=== PATIENT | male | born 1960 | race Caucasian/White ===

== ENCOUNTER 2017-04-25 15:24 | Inpatient (IN) | payer OTHER ==
[~2017-04-25] VITALS: Ht 187.9 cm; Wt 102.1 kg
--- NOTE | ~2017-04-25 | PR ---
[place], [place] PROGRESS NOTE [id number] UNIT #: [id number] ROOM: 412 DOCTOR: MELVA NAYLOR MD BIRTHDATE: [birth year] DOS: 04/29/2017 SUBJECTIVE: The patient hemodynamically remained stable. Cardiac enzymes are being negative. OBJECTIVE: VITAL SIGNS: His blood pressure is excellent 115/60. He is in sinus rhythm. HEENT: Unremarkable. NECK: Supple, no JVD. LUNGS: Clear. HEART: Sounds are regular. NEUROLOGIC: Appears to be stable. LABORATORY DATA: Cardiac enzymes have been negative. All other labs are still pending. REVIEW OF SYSTEMS: The patient's anxiety improved. IMPRESSION: The patient with coronary artery disease, stent placement, hypertension, hyperlipidemia, and depression. Cardiac status appears to be stable. The patient apparently had a stress test done in [place] couple of months ago and reported negative. The patient had a stent placement by ____ last year. PLAN: The patient to continue the present care and followup with his home health registered nurse as an outpatient. At this point, cardiac status is stable. MELVA NAYLOR MD CM:PNTRANS MELVA NAYLOR MD 04/29/1738 interface
--- NOTE | ~2017-04-25 | CON ---
[place], [place] REPORT OF CONSULTATION NAME: KENDALL BELTRE UNIT #: [id number] ROOM: 412 DOCTOR: RAMIN ZEELISBET (CARRI) BIRTHDATE: [birth year] DOS: 04/28/2017 HISTORY OF PRESENT ILLNESS: The patient is a 57-year-old male referred by the hospitalist for a psychological evaluation. At the present time, this patient is on the 4th floor at [facility]. This patient is single and has no children. He states that he is on SSI for his disability. His family physician is Dr. Guy in [place], [place]. MEDICAL HISTORY: Pertinent for coronary artery disease, major depression, hypertension, generalized anxiety disorder, GERD, hypercholesterolemia and diabetes mellitus type 2. MEDICATIONS: Include Xanax, Elavil, aspirin, Suboxone, vitamin D, clonidine, metformin, naproxen, omeprazole, Zocor, trazodone, metformin, Plavix, Nexium, and Neurontin. This patient states he quit drinking many years ago and also quit smoking. He states he does occasionally smoke a cigarette. He has been on Suboxone for approximately 5 years as prescribed by Dr. Trujillo. He does have a counselor in the [place], [place] area. This patient is awake, alert and oriented in all three spheres. He does admit to being mildly depressed at this time. He was concerned about his medications what he will be placed on once he is discharged from the hospital. He states he was heading from [place], [place] and as he came by the hospital, he had chest pain and came to the Emergency Department. He was subsequently sent to the medical floor and from there he was treated under the [facility] to get him detoxified from his Subutex, according to the patient. He states he does not want to take Suboxone if possible in the future, but he does want to continue his Xanax because it helped him with his anxiety. Dr. Ho did reevaluate his medications and prescribed an antihistamine for his anxiety. DIAGNOSES: 1. Major depressive disorder, recurrent - mild. 2. History of opioid dependence. RECOMMENDATIONS: In my opinion, this patient should continue to follow up with his counselor in [place], [place] and follow up with Dr. Trujillo if necessary. Thank you very much for this consult. [place], [place] REPORT OF CONSULTATION NAME: KENDALL BELTRE UNIT #: [id number] ROOM: 412 DOCTOR: LISBET FAUSTIN ED.D (CARRI) BIRTHDATE: [birth year] LISBET FAUSTIN ED.D CM:CONSTR:REPORT OF CONSULTATION 1014 04/28/17 1057 interface
--- NOTE | ~2017-04-25 | CON ---
[place], [place] REPORT OF CONSULTATION NAME: KENDALL BELTRE UNIT #: [id number] ROOM: 412 DOCTOR: MELVA NAYLOR MD BIRTHDATE: [birth year] DOS: 04/27/2017 HISTORY OF PRESENT ILLNESS: A 57-year-old gentleman, appears to be very dramatic admitted with substernal chest discomfort. The patient had a stent placement by Dr. Pro Velasquez about 4 months ago. The patient is very vague about the timing and also the compliance is a big issue, admitted with left-sided chest discomfort, shakiness for the last 2 days. The patient with no acute EKG changes suggestion of myocardial injury or infarction. Cardiac enzymes all came out normal. The patient admits significant anxiety, has lot of psychiatric issues and shortness of breath. The patient says he has not eaten anything for the last 2-3 days, complains of anxiety and states he wants detox from Suboxone and warns to have new vision problems. The patient complain some visual disturbances. The patient looks like he is pain medication dependent on Suboxone. PAST MEDICAL HISTORY: Coronary artery disease, stent placement, depression, hypertension, hyperlipidemia, neuropathy, diabetes mellitus. PAST SURGICAL HISTORY: Cardiac catheterization, cholecystectomy, stent placement, tonsillectomy. SOCIAL HISTORY: Denies any drug abuse. Former smoker. FAMILY HISTORY: Positive for coronary artery disease. ALLERGIES: IODIDE AND PENICILLIN. HOME MEDICATIONS: Aspirin, clopidogrel, clonidine, lisinopril, gabapentin, metformin, omeprazole, simvastatin. REVIEW OF SYSTEMS: CONSTITUTIONAL: No fever, no chills. HEENT: No visual disturbances, hearing problems. CARDIOVASCULAR: As per HPI. GASTROINTESTINAL: No nausea, no vomiting. GENITOURINARY: No dysuria. NEUROLOGICAL: Stable. PHYSICAL EXAMINATION: VITAL SIGNS: Blood pressure is 110/70, sinus rhythm. HEENT: Unremarkable. NECK: Supple, no JVD. LUNGS: Clear. HEART: Sounds are regular. ABDOMEN: Soft, nontender. NEUROLOGICAL: Stable. LABORATORY DATA: Electrolytes are normal. Liver functions are normal. Hemoglobin 15, hematocrit 42.9. EKG sinus with nonspecific ST-T changes. [place], [place] REPORT OF CONSULTATION NAME: KENDALL BELTRE UNIT #: [id number] ROOM: 412 DOCTOR: MELVA NAYLOR MD BIRTHDATE: [birth year] IMPRESSION: The patient with coronary artery disease with atypical chest pain, anxiety, tachycardia, history of pain medication dependency, hyperlipidemia, hypertension, depression, and neuropathy. RECOMMENDATIONS: Continue the present medications. Make sure the patient is on the Plavix and aspirin as ordered. Continue the other medication. Behavior problems and Dr. Ho has been consulted. The patient's compliance discussed with the patient in detail. Discussed with the residents also in detail. The patient will try to obtain all the reports from [facility]. If he already has a stent placement and has a stress test a couple of months ago after the stent, there is no reason to repeat a stress. If there is no stress test are done after the stent placement, we need to consider to do a stress test and we will follow up as an outpatient. MELVA NAYLOR MD CM:CONSTR:REPORT OF CONSULTATION 1 04/27/1729 interface
--- NOTE | ~2017-04-25 | CON ---
[place], [place] REPORT OF CONSULTATION NAME: KENDALL BELTRE UNIT #: [id number] ROOM: 412 DOCTOR: SIVAKUMAR WHITTAKER MD BIRTHDATE: [birth year] DOS: 04/26/2017 CHIEF COMPLAINT: "I have been depressed and anxious for 5-6 years now." HISTORY OF PRESENT ILLNESS: This is a 57-year-old white male admitted due to significant left-sided chest pain with nausea and vomiting; however, in the course of his evaluation, he did report to the hospitalist that he has been battling depression and anxiety on and off for the last 5-6 years. He reports having never seen a psychiatrist, but does have chemical dependency counselor in [place] for polysubstance abuse. Most recently, he has been on trazodone for sleep and has been on Ativan and Xanax in the past for his anxiety. He reports multiple losses including his who was diagnosed with hereditary cirrhosis dying in his arms overnight. He was in the car with his father who dropped on the spot. He came in to his brother's house and found his brother and his young sister had overdosed on carbon monoxide poisoning and he found her as well. He reports all of these losses have affected him horrifically. He has issues with poor sleep with difficulty falling asleep, sustaining sleep and waking up early. He does have some flashback type symptoms as well. His appetite varies. His energy level fluctuates. He has been unable to work and even has a hard time attending to his ADLs because of it. MENTAL STATUS: He is alert and oriented. Mood does seem to be depressed. Affect is flat, blunted, and constricted. He endorses multiple neurovegetative symptoms as well as the anxiety. Of note is he repeatedly requested that I prescribed him Xanax because the Xanax worked better than the Ativan. There is no sisi or hypomania. There are no psychotic symptoms and memory for the most part is intact. DIAGNOSES: Major depression, recurrent; anxiety disorder, not otherwise specified and a history of polysubstance abuse. PLAN: I will discontinue his Elavil and his trazodone in lieu of Remeron 15 mg at bedtime. This will help with the depressive symptoms better. It will improve sleep and appetite and also decrease flashbacks. I would avoid the use of any benzodiazepine in an individual that has polysubstance abuse and instead utilize Vistaril 50 mg 3 times a day. If at all possible, I would see if we can get him set up with an appointment with a counselor. It would be nice to see if Nathen, psychologist, could come in and see him. If not, he would benefit from an outpatient counselor as well. Should you require further intervention, feel free to contact me at any time. [place], [place] REPORT OF CONSULTATION NAME: KENDALL BELTRE SIVAKUMAR UNIT #: [id number] ROOM: 412 DOCTOR: SIVAKUMAR WHITTAKER MD BIRTHDATE: [birth year] SIVAKUMAR WHITTAKER MD CM:CONSTR:REPORT OF CONSULTATION 0904 04/26/17 1503 interface
[~2017-04-25 15:24] MED LIST: ASPIR LOW81 MG PO; ATIVAN1 MG PO; CLONIDINE HCL0.1 MG PO; FISH OIL1000 MG PO; FLEXERIL10 MG PO; GABAPENTIN400 MG PO; GLUCOPHAGE500 MG PO; GLUCOTROL10 MG PO; JANUMET 1000 MG1 TA1 PO; LEVOFLOXACIN500 MG PO; LISINOPRIL2.5 MG PO; METFORMIN1000 MG PO; MIRALAX POWDER255 GM PO; MOTRIN800 MG PO; NEXIUM40 MG PO; NIASPAN500 MG PO; OZURDEX0.7 MG IO; PAXIL20 MG PO; PHENERGAN25 M1 PO; PLAVIX75 MG PO; TRAMADOL HCL50 MG PO; TRAZADONE HYDR100 MG PO; ULTRAM50 MG PO; VICODIN 5/500 505 MG PO; XANAX1 MG PO; ZOCOR80 MG PO
[2017-04-25 15:34] VITALS: BP 176/93
[2017-04-25 15:52] LABS: BASO # 0.1 10*3/uL (0.0-0.1); BASO % 0.6 % (0.0-1.0); EOS # 0.1 10*3/uL (0.0-0.4); EOS % 0.6 % (1.0-4.0); HEMATOCRIT 42.9 % (42.0-52.0); LYMPH # 3.9 10*3/uL (1.3-4.4); LYMPH % 23.9 % (27.0-41.0); MEAN CELL VOLUME 84.8 fl (80.0-94.0); MEAN CORPUSCULAR HGB 29.6 pg (27.0-31.0); MEAN PLATELET VOLUME 11.3 fl (9.6-12.3); MONO # 0.9 10*3/uL (0.1-1.0); MONO % 5.2 % (3.0-9.0); NEUT # 11.2 10*3/uL (2.3-7.9); NEUT % 68.5 % (47.0-73.0); PLATELET COUNT AUTOMATED 175 10*3/uL (130-400); RED BLOOD COUNT 5.06 10*6/uL (4.50-5.90); RED CELL DISTRI WIDTH 14.5 % (0-14.5); WHITE BLOOD COUNT 16.4 10*3/uL (4.8-10.8)
[2017-04-25 16:00] LABS: ACT PARTIAL THROMBO TIME 24.5 SECONDS (20.8-31.5); INTERNATIONAL NORM RATIO 1.1 (2.0-3.5)
[2017-04-25 16:13] LABS: ALBUMIN 4.1 gm/dl (3.1-4.5); ALKALINE PHOSPHATASE 77 U/L (45-117); BUN 11 mg/dl (7-24); CHLORIDE 101 mmol/L (98-107); CREATININE 0.91 mg/dL (0.70-1.30); POTASSIUM 3.7 mmol/L (3.5-5.1); SGOT/AST 21 IU/L (3-35); SGPT/ALT 38 U/L (12-78); SODIUM 134 mmol/L (136-145); TOTAL PROTEIN 8.3 gm/dL (6.4-8.2)
[2017-04-25 16:15] LABS: TROPONIN I < 0.015 ng/ml (<0.045)
[2017-04-25 18:06] VITALS: BP 150/58
[2017-04-25 18:14] VITALS: BP 122/52
[2017-04-25] MEDS ORDERED: ZOCOR80 MG PO (18:54)
[2017-04-25] MEDS ORDERED: TRAZODONE100 MG PO (18:55)
[2017-04-25] MEDS ORDERED: AMITRIPTYLINE10 MG PO (18:55)
[2017-04-25 20:00] VITALS: BP 93/64
[2017-04-25] MEDS ORDERED: OMEPRAZOLE20 M2 PO (20:57)
[2017-04-25] MEDS ORDERED: ALOGLIPTIN25 MG PO (20:58)
[2017-04-25] MEDS ORDERED: NAPROXEN375 MG PO (21:00)
[2017-04-25] MEDS ORDERED: FOLBEE PLUS TABL5 MG PO (21:01)
[2017-04-25] MEDS ORDERED: VITAMIN D-32000 UNIT PO (21:03)
[2017-04-25] MEDS ORDERED: PROMETHAZINE25 M1 PO (21:04)
[2017-04-25] MEDS ORDERED: NEURONTIN800 MG PO (21:05)
[2017-04-25] MEDS ORDERED: AMITRIPTYLINE25 MG PO (21:06)
[2017-04-25] MEDS ORDERED: SUBOXONE 8 MG-1 EACH SL (21:09)
[2017-04-26] VITALS: BP 121/67
[2017-04-26 08:00] VITALS: BP 144/64
[2017-04-26 11:51] LABS: BASO # 0.1 10*3/uL (0.0-0.1); BASO % 0.7 % (0.0-1.0); EOS # 0.1 10*3/uL (0.0-0.4); EOS % 0.6 % (1.0-4.0); HEMATOCRIT 41.2 % (42.0-52.0); HEMOGLOBIN 14.2 g/dl (14.0-18.0); LYMPH % 27.6 % (27.0-41.0); MEAN CELL VOLUME 84.9 fl (80.0-94.0); MEAN CORPUSCULAR HGB 29.3 pg (27.0-31.0); MEAN CORPUSCULAR HGB CONC 34.5 g/dl (33.0-37.0); MEAN PLATELET VOLUME 11.5 fl (9.6-12.3); MONO # 0.6 10*3/uL (0.1-1.0); MONO % 5.5 % (3.0-9.0); NEUT % 64.6 % (47.0-73.0); PLATELET COUNT AUTOMATED 179 10*3/uL (130-400); RED BLOOD COUNT 4.85 10*6/uL (4.50-5.90); RED CELL DISTRI WIDTH 14.6 % (0-14.5); WHITE BLOOD COUNT 10.8 10*3/uL (4.8-10.8)
[2017-04-26 12:00] VITALS: BP 177/66
[2017-04-26 12:17] LABS: ALBUMIN 3.8 gm/dl (3.1-4.5); ALKALINE PHOSPHATASE 69 U/L (45-117); BUN 11 mg/dl (7-24); CHLORIDE 102 mmol/L (98-107); CHOLESTEROL 113 mg/dL (<200); CREATININE 0.66 mg/dL (0.70-1.30); HDL CHOLESTEROL 41 mg/dl (40-60); LDL CHOLESTEROL 47 mg/dL (9-159); PHOSPHOROUS 2.3 mg/dL (2.5-4.9); SGOT/AST 22 IU/L (3-35); SGPT/ALT 39 U/L (12-78); SODIUM 136 mmol/L (136-145); TOTAL PROTEIN 7.9 gm/dL (6.4-8.2); TRIGLYCERIDES 124 mg/dl (<150); VLDL CHOLESTEROL 25 mg/dL (6-40)
[2017-04-26 13:01] LABS: VITAMIN D, 25-HYDROXY 23.4 ng/mL (30-100)
[2017-04-26 16:00] VITALS: BP 158/69
[2017-04-26 20:00] VITALS: BP 152/69
[2017-04-27] VITALS: BP 156/61
[2017-04-27 07:40] VITALS: BP 142/58
[2017-04-27 12:00] VITALS: BP 144/66
[2017-04-27 16:00] VITALS: BP 141/58
[2017-04-27 20:00] VITALS: BP 145/89
[2017-04-28] VITALS: BP 117/65
[2017-04-28 08:00] VITALS: BP 144/70
[2017-04-28 12:00] VITALS: BP 136/80
[2017-04-28 16:00] VITALS: BP 165/72
[2017-04-28 20:00] VITALS: BP 165/63
[2017-04-29] VITALS: BP 115/62
[2017-04-29 07:19] LABS: BASO # 0.1 10*3/uL (0.0-0.1); BASO % 0.6 % (0.0-1.0); EOS # 0.1 10*3/uL (0.0-0.4); EOS % 1.4 % (1.0-4.0); HEMATOCRIT 41.7 % (42.0-52.0); HEMOGLOBIN 14.3 g/dl (14.0-18.0); LYMPH % 39.1 % (27.0-41.0); MEAN CELL VOLUME 85.6 fl (80.0-94.0); MEAN CORPUSCULAR HGB 29.4 pg (27.0-31.0); MEAN CORPUSCULAR HGB CONC 34.3 g/dl (33.0-37.0); MEAN PLATELET VOLUME 11.5 fl (9.6-12.3); MONO # 0.8 10*3/uL (0.1-1.0); MONO % 7.3 % (3.0-9.0); NEUT # 5.2 10*3/uL (2.3-7.9); NEUT % 50.4 % (47.0-73.0); PLATELET COUNT AUTOMATED 173 10*3/uL (130-400); RED BLOOD COUNT 4.87 10*6/uL (4.50-5.90); RED CELL DISTRI WIDTH 14.4 % (0-14.5); WHITE BLOOD COUNT 10.3 10*3/uL (4.8-10.8)
[2017-04-29 07:33] LABS: CREATININE 0.73 mg/dL (0.70-1.30)
[2017-04-29 08:00] VITALS: BP 120/66
[2017-04-29] MEDS ORDERED: NATURE'S BLEND100 M2 PO (10:19)
[2017-04-29] MEDS ORDERED: MIRTAZAPINE15 M2 PO (10:19)
== END 2017-04-29 11:20 | disposition home or self-care (01) | DRG 206 ==
LOC: ED 15:24 → EDHOLD 17:38 → 4E 17:38
PROVIDERS: Emergency Medicine; Internal Medicine Hospice and Palliative Medicine
DX: M94.0 Chondrocostal junction syndrome [Tietze] (principal); E11.40 Type 2 diabetes mellitus with diabetic neuropathy, unspecified; R65.10 Systemic inflammatory response syndrome (SIRS) of non-infectious origin without acute organ dysfunction; E83.42 Hypomagnesemia; E11.65 Type 2 diabetes mellitus with hyperglycemia; E87.1 Hypo-osmolality and hyponatremia; F11.23 Opioid dependence with withdrawal; F33.0 Major depressive disorder, recurrent, mild; E78.00 Pure hypercholesterolemia, unspecified; K21.9 Gastro-esophageal reflux disease without esophagitis; I10 Essential (primary) hypertension; F41.1 Generalized anxiety disorder; G47.00 Insomnia, unspecified; I25.10 Atherosclerotic heart disease of native coronary artery without angina pectoris; E78.5 Hyperlipidemia, unspecified; I25.2 Old myocardial infarction; Z79.84 Long term (current) use of oral hypoglycemic drugs; Z79.82 Long term (current) use of aspirin; Z79.899 Other long term (current) drug therapy; Z88.6 Allergy status to analgesic agent; Z88.0 Allergy status to penicillin; Z88.8 Allergy status to other drugs, medicaments and biological substances; Z83.3 Family history of diabetes mellitus; Z83.6 Family history of other diseases of the respiratory system; Z82.49 Family history of ischemic heart disease and other diseases of the circulatory system

== ENCOUNTER 2020-04-22 11:01 | Emergency (ER) | payer OTHER ==
[~2020-04-22] VITALS: Ht 187.9 cm; Wt 105.2 kg
[~2020-04-22 11:01] MED LIST changes: +ALOGLIPTIN25 MG PO; +AMITRIPTYLINE10 MG PO; +AMITRIPTYLINE25 MG PO; +FOLBEE PLUS TABL5 MG PO; +MIRTAZAPINE15 M2 PO; +NAPROXEN375 MG PO; +NATURE'S BLEND100 M2 PO; +NEURONTIN800 MG PO; +OMEPRAZOLE20 M2 PO; +PROMETHAZINE25 M1 PO; +SUBOXONE 8 MG-1 EACH SL; +TRAZODONE100 MG PO; +VITAMIN D-32000 UNIT PO
[2020-04-22 11:32] LABS: BASO # 0.1 10*3/uL (0.0-0.1); BASO % 0.7 % (0.0-1.0); EOS # 0.1 10*3/uL (0.0-0.4); EOS % 0.7 % (1.0-4.0); HEMATOCRIT 41.2 % (42.0-52.0); LYMPH # 2.4 10*3/uL (1.3-4.4); LYMPH % 20.6 % (27.0-41.0); MEAN CORPUSCULAR HGB 28.8 pg (27.0-31.0); MEAN CORPUSCULAR HGB CONC 32.8 g/dl (33.0-37.0); MEAN PLATELET VOLUME 11.3 fl (9.6-12.3); MONO # 0.6 10*3/uL (0.1-1.0); NEUT # 8.2 10*3/uL (2.3-7.9); NEUT % 71.2 % (47.0-73.0); PLATELET COUNT AUTOMATED 196 10*3/uL (130-400); RED BLOOD COUNT 4.68 10*6/uL (4.50-5.90); RED CELL DISTRI WIDTH 15.8 % (0-14.5); WHITE BLOOD COUNT 11.5 10*3/uL (4.8-10.8)
[2020-04-22 11:43] LABS: ACT PARTIAL THROMBO TIME 25.9 SECONDS (20.0-32.1); INTERNATIONAL NORM RATIO 1.1 (2.0-3.5)
[2020-04-22 11:49] LABS: ALKALINE PHOSPHATASE 63 U/L (45-117); BUN 12 mg/dl (7-24); CHLORIDE 106 mmol/L (98-107); CREATININE 0.86 mg/dL (0.70-1.30); SGOT/AST 19 IU/L (3-35); SGPT/ALT 30 U/L (12-78); SODIUM 137 mmol/L (136-145); TOTAL PROTEIN 8.3 gm/dL (6.4-8.2)
[2020-04-22 11:50] LABS: TROPONIN I < 0.015 ng/ml (<0.045)
[2020-04-22 12:03] LABS: BILIRUBIN Negative (Negative); BLOOD Negative (Negative); CLARITY Clear (Clear); COLOR Yellow (Yellow); GLUCOSE Negative (Negative); KETONE Trace (Negative); LEUKO ESTERASE Negative (Negative); NITRITE Negative (Negative); PH 5.5 (4.5-8.0); SPECIFIC GRAVITY 1.015 (1.001-1.030); UROBILINOGEN 0.2 E.U./dl (0.0-1.0)
[2020-04-22 12:11] LABS: URINE AMPHETAMINES < 1000 (1000ng/ml); URINE BARBITURATES < 200 (200ng/ml); URINE BENZODIAZEPINES < 200 (200ng/ml); URINE CANNABINOIDS (THC) < 50 (50ng/ml); URINE COCAINE < 300 (300ng/ml); URINE METHADONE < 300 (300ng/ml); URINE OPIATES < 300 (300ng/ml)
[2020-04-22 12:13] LABS: WBC 0-2 wbc/hpf (0-5)
[2020-04-22 12:14] LABS: URINE PHENCYCLIDINE < 25 (25ng/ml)
== END 2020-04-22 12:20 | disposition left against medical advice (07) ==
LOC: ED 11:01
PROVIDERS: Emergency Medicine; Nurse Practitioner Family
DX: R07.89 Other chest pain (principal); M54.9 Dorsalgia, unspecified; M79.89 Other specified soft tissue disorders; K21.9 Gastro-esophageal reflux disease without esophagitis; E78.00 Pure hypercholesterolemia, unspecified; E11.9 Type 2 diabetes mellitus without complications; Z88.8 Allergy status to other drugs, medicaments and biological substances; Z88.0 Allergy status to penicillin; Z79.899 Other long term (current) drug therapy; Z79.82 Long term (current) use of aspirin; Z87.891 Personal history of nicotine dependence